=== PATIENT | female | born 1975 | race Caucasian/White ===

== ENCOUNTER 2017-11-10 20:18 | Emergency (ER) | payer BC ==
[~2017-11-10] VITALS: Ht 160 cm; Wt 84.0 kg
[2017-11-10 22:42] VITALS: BP 108/50
[2017-11-10] MEDS ORDERED: VOLTAREN 1% GE100 GM TP (22:45)
[2017-11-10] MEDS ORDERED: LIDODERM 5% P1 PATCH TD (22:45)
== END 2017-11-10 22:49 | disposition home or self-care (01) ==
LOC: EME 20:18
DX: R60.0 Localized edema (principal); M79.605 Pain in left leg; Z86.718 Personal history of other venous thrombosis and embolism; Z90.49 Acquired absence of other specified parts of digestive tract; Z98.84 Bariatric surgery status
CPT/HCPCS: 93971; 99281; 99284

== ENCOUNTER 2018-01-08 18:39 | Emergency (ER) | payer BC ==
[~2018-01-08] VITALS: Ht 160 cm; Wt 79.9 kg
[~2018-01-08 18:39] MED LIST: LIDODERM 5% P1 PATCH TD; VOLTAREN 1% GE100 GM TP
[2018-01-08 19:37] VITALS: BP 103/60
== END 2018-01-08 19:38 | disposition home or self-care (01) ==
LOC: EME 18:39
DX: S90.32XA Contusion of left foot, initial encounter (principal); W20.8XXA Other cause of strike by thrown, projected or falling object, initial encounter
CPT/HCPCS: 73630; 99281; 99284